=== PATIENT | female | born 2005 | race Two or more races ===

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

== ENCOUNTER 2023-01-22 00:31 | Emergency (ER) | payer MEDICAID ==
[~2023-01-22] VITALS: Ht 165.1 cm; Wt 68.2 kg
[~2023-01-22 00:31] MED LIST: ACYC-163 PO; DOXY-332 PO; METR500T14 PO; ONDA-144 PO
[2023-01-22 01:35] LABS: Basophils # (auto) 0 10 ^3/uL (0-0.2); Basophils % (auto) 0.5 % (0.0-2.0); Eosinophils # (auto) 0.2 10 ^3/uL (0-0.8); Eosinophils % (auto) 2.5 % (0.0-7.0); Hematocrit 30.6 % (36.0-46.0); Hemoglobin 10.2 g/dL (12.2-16.2); Lymphocytes # (auto) 3.1 10 ^3/uL (0.4-5.4); Lymphocytes % (auto) 37.4 % (10.0-50.0); Mean Corpuscular Hemoglobin 27.4 pg (28.0-32.0); Mean Corpuscular Hgb Conc. 33.3 g/dL (32.0-36.0); Mean Corpuscular Volume 82.3 fL (80.0-100.0); Monocytes # (auto) 0.5 10 ^3/uL (0-1.3); Monocytes % (auto) 5.8 % (0.0-12.0); Neutrophils # (auto) 4.4 10 ^3/uL (1.6-8.6); Neutrophils % (auto) 53.8 % (37.0-80.0); Nucleated Red Blood Cells % 0.1 %; Red Blood Cells 3.72 10^6/uL (4.0-5.20); Red Cell Distribution Width 14.8 % (11.8-14.3); White Blood Cell 8.2 10^3/uL (4.4-10.8)
[2023-01-22] MEDS ORDERED: IOHEXOL 350 MG/ML 100ML IJ ONE (01:40)
[2023-01-22 01:44] LABS: Albumin 3.2 g/dL (3.4-5.0); BUN/Creatinine Ratio 23.6 (10.0-20.0); Calcium 8.7 mg/dL (8.5-10.1); Potassium 3.4 mmol/L (3.5-5.1)
[2023-01-22 01:47] LABS: Bilirubin, Total 0.1 mg/dL (0.2-1.0)
[2023-01-22 05:45] VITALS: BP 110/45
== END 2023-01-22 05:58 | disposition home or self-care (01) ==
LOC: EDBD 00:31 → ER 00:31
DX: R07.89 Other chest pain (principal); F12.10 Cannabis abuse, uncomplicated; F14.10 Cocaine abuse, uncomplicated; J45.909 Unspecified asthma, uncomplicated; F32.9 Major depressive disorder, single episode, unspecified; F41.9 Anxiety disorder, unspecified
CPT/HCPCS: 36415; 71275; 80053; 85025; 99285; Q9967